=== PATIENT | male | born 1965 | race American Indian/Alaskan Native ===

== ENCOUNTER 2018-10-12 11:04 | Observation (INO) | payer BC ==
[2018-10-12] MEDS ORDERED: ASPIRIN 325 MG TAB PO ONE (12:00)
[2018-10-12 12:22] LABS: Absolute Monocytes 0.7 K/uL (0.1-1.3); Absolute Neutrophil 5.8 K/uL (1.8-8.0); Basophils % 0.5 % (0-1.3); Eosinophils % 1.1 % (0-4.4); Hematocrit 46.2 % (39.6-49.0); Lymphocytes % 23.4 % (15.3-44.8); MCH 30.4 pg (27.0-35.0); MCV 90.8 fL (80-100); Monocytes % 7.7 % (3.3-12.3); RBC Red Blood Cell Count 5.09 M/uL (4.33-5.43)
[2018-10-12 12:33] LABS: ALT/SGPT 36 U/L (12-78); AST/SGOT 20 U/L (15-37); Alkaline Phosphatase 108 U/L (45-117); BUN Blood Urea Nitrogen 19 mg/dL (7-18); Bicarbonate 26 mmol/L (21-32); Bilirubin Total 0.4 mg/dL (0.2-1.0); Glucose Level 172 mg/dL (74-106); Potassium 4.4 mmol/L (3.5-5.1); Protein, Total 7.7 g/dL (6.4-8.2); Sodium Level 139 mmol/L (136-145); Troponin I < 0.02 ng/mL (0.0-0.045)
--- NOTE | 2018-10-12 12:59 | RAD REPORT ---
EXAM DESCRIPTION: RAD - Chest Pa And Lat (2 Views) - 10/12/2018 12:50 pm CLINICAL HISTORY: Chest pain COMPARISON: None. TECHNIQUE: PA and lateral views of the chest were obtained. FINDINGS: The lungs are clear. Heart size is normal and central vasculature is within normal limit s. No pleural effusion or pneumothorax seen. No acute bony finding noted. No aortic abnormality. IMPRESSION: No acute cardiopulmonary process.
[2018-10-12 13:56] VITALS: BMI 38.5
[2018-10-12] MEDS: METOPROLOL TAR 25 MG TAB PO SCH ×2 (14:00→20:45)
[2018-10-12] MEDS: Enoxaparin 120 MG/0.8 ML SYR SQ SCH ×2 (14:00→20:46)
[2018-10-12 14:01] LABS: Urine Appearance CLEAR; Urine Bilirubin NEGATIVE (NEG); Urine Blood NEGATIVE (NEG); Urine Color YELLOW; Urine Glucose NEGATIVE (NEG); Urine Protein NEGATIVE (NEG); Urine Urobilinogen 0.2 mg/dL (0.2-1.0)
[2018-10-12 14:02] LABS: Urine Microscopic Reflex NO UMIC
[2018-10-12] MEDS ORDERED: PNEUMOCOCCAL VACCINE 0.5 ML IMVAC ONE (15:00)
[2018-10-12] MEDS ORDERED: INFLUENZA VACCINE (for 3y+) 0.5 ML DOSE IMVAC ONE (15:00)
[2018-10-12] MEDS ORDERED: MORPHINE 4 MG/ML SYR IV PRN (15:30)
[2018-10-12] MEDS ORDERED: GLUCAGON 1 MG/VIAL IM PRN (17:23)
[2018-10-12] MEDS ORDERED: D50W 25 GM/50 ML SYRINGE IV PRN (17:23)
[2018-10-12] MEDS: INSULIN -REGULAR HUMAN 50 UNIT/0.5 ML ML SQ SCH (20:44)
[2018-10-12] MEDS: ALPRAZOLAM 0.5 MG TABLET PO PRN ×2 (20:46→22:14)
[2018-10-13] MEDS: ALPRAZOLAM 0.5 MG TABLET PO PRN ×3 (05:22→21:54)
[2018-10-13] MEDS: INSULIN -REGULAR HUMAN 50 UNIT/0.5 ML ML SQ SCH ×4 (07:30→21:00)
[2018-10-13] MEDS ORDERED: REGADENOSON 0.4 MG/5 ML SYR IV ONE (07:54)
[2018-10-13] MEDS ORDERED: HOME MED 1 EA UNK (Aspirin [Aspirin Ec 325 Mg] 325 MG) PO SCH (09:00)
[2018-10-13] MEDS ORDERED: ASPIRIN EC 325 MG TABLET PO SCH (09:00)
[2018-10-13] MEDS ORDERED: AMLODIPINE BESYLATE PO SCH (09:00)
[2018-10-13] MEDS ORDERED: BENAZEPRIL PO SCH (09:00)
[2018-10-13] MEDS ORDERED: ATORVASTATIN 10 MG TAB PO SCH (09:00)
--- NOTE | 2018-10-13 11:13 | CON ---
Chief Complaint: Chest pain. History Of Present Illness: Mr. Campos has been having chest pain off and on for a week or perhaps se veral weeks. It is mostly in his left arm, some in the chest, not related to exertion, tends to occu r at rest mostly. The patient has a history of diabetes, obesity, hypertension, dyslipidemia, uses n o tobacco. He also has gout. Outpatient Medications: Metformin, fenofibrate, atorvastatin, vitamin B12, amlodipine, allopurinol, aspirin, multivitamin, and benazepril. Allergies: HE HAS NO ALLERGIES. Social History: Uses no tobacco. Rare alcohol. No illegal drugs. Physical Examination: General: 5 feet 7 inches, 246 pounds. Obese, alert, oriented, pleasant, not in distress. Lungs: Clear. Carotids no bruit. Heart: Exam within normal limits. Abdomen: Soft. Extremities: Normal distal pulses. Diagnostic Data: We do not seem to have an EKG done as of yet. He should have a baseline EKG at greg e point. If he has anything abnormal in his nuclear stress test or echo, we will discuss the finding s with him and look for another plan to make a diagnosis, possibly a cardiac cath. Thank you very much for your kind referral of Mr. Campos. I will follow him with you. JAVID Voice ID: [id number] Report ID: [id number]
[2018-10-13] MEDS: Enoxaparin 120 MG/0.8 ML SYR SQ SCH (11:33)
[2018-10-13] MEDS: ALLOPURINOL 300 MG TAB PO SCH (11:35)
[2018-10-13] MEDS: BENAZEPRIL 20 MG TAB PO SCH (11:35)
[2018-10-13] MEDS: AMLODIPINE 10 MG TAB PO SCH (11:36)
[2018-10-13] MEDS: METOPROLOL TAR 25 MG TAB PO SCH ×2 (11:36→20:43)
[2018-10-13] MEDS: FENOFIBRATE 160 MG TAB PO SCH (11:37)
--- NOTE | 2018-10-13 11:39 | RAD REPORT ---
EXAM DESCRIPTION: NM - Rest Stress Cardiac Imaging - 10/13/2018 11:20 am CLINICAL HISTORY: CP Chest pain. COMPARISON: No comparisons TECHNIQUE: The patient was administered approximately 10mCi of Tc 99m Sestamibi prior to resting SPE CT imaging of the heart. The patient was then administered approximately 30 mCi of Tc 99m Sestamibi f ollowing exercise or pharmacologic stress. Multiplanar SPECT images were reviewed. FINDINGS: Moderate sized area of mild stress-induced ischemia is seen along the lateral wall. No fix ed defect is seen to suggest hibernating myocardium or scarred myocardium. The end diastolic volume is 102 ml, the end systolic volume is 52 ml, and the ejection fraction is 49 %. IMPRESSION: Moderate sized area of mild stress-induced ischemia involving the lateral wall.
--- NOTE | 2018-10-13 13:27 | TREADPHA ---
DX: CHEST PAIN Date of Study: 10/13/18 Ht: 5 7 Wt: 246 lb 2 oz Consulting Physician: ANT MEDICATIONS: ZYLOPRIM, XANAX, NORVASC, ECOTRIN, LIPITOR, LOTENSIN, DEXTROSE, LOVENOX, TRICOR, NOVOLIN, LOPRESSOR. HISTORY: 53 YEAR OLD MALE WITH COMPLAINTS OF CHEST PAIN. HISTORY OF HYPERTENSION, NON INSULINE DEPENDENT DIABETES MELLITUS, HYPERLIDEMIA, NON SMOKER PHYSICIAL EXAMINATION: RESTING B.P.: 112/83 RESTING H.R.: 79 RESTING EKG: NORMAL PROTOCOL: LEXISCAN EXERCISE TIME: 3:30 B.P. AT PEAK STRESS: 94/59 IMPRESSION: LEXISCAN INJECTED PER PROTOCOL, FOLLOWED BY CARDIOLITE PER PROTOCOL, SEE [facility] MEDICINE REPORT. NO SUPRA VENTRICULAR TACHYCARDIA, NO VENTRICULAR TACHYCARDIA, NO CHEST PAIN, NO PREMATURE ATRIAL COMPLEXES, NO PREMATURE VENTRICULAR COMPLEXES. NON DIAGNOSTIC EKG WITH LEXISCAN STRESS.
--- NOTE | 2018-10-13 13:37 | ECHO ---
HEIGHT: 5 ft 7 in WEIGHT: 246 lb 2 oz DATE OF STUDY: 10/13/[address]: Josue Subramanian MD 2-DIMENSIONAL: YES M.MODE: YES DOPPLER: YES COLOR FLOW: YES TDS: PORTABLE: DEFINITY: BUBBLE STUDY: DIAGNOSIS: ATYPICAL CHEST PAIN. CARDIAC HISTORY: CATHERIZATION: NO SURGERY: NO PROSTHETIC VALVE: NO PACEMAKER: NO MEASUREMENTS (cm) DIASTOLIC (NORMALS) SYSTOLIC (NORMALS) IVSd 1.2 (0.6-1.2) LVIDs 2.8 (2.0-3.5) LVEF 52% LVIDd 3.8 (3.5-5.7) %FS 26% LVPWd 1.3 (0.6-1.2) Ao Diam 2.7 (2.0-3.7) 2 DIMENSIONAL ASSESSMENT: RIGHT ATRIUM: NORMAL LEFT ATRIUM: NORMAL RIGHT VENTRICLE: NORMAL LEFT VENTRICLE: NORMAL TRICUSPID VALVE: NORMAL MITRAL VALVE: NORMAL PULMONIC VALVE: NORMAL AORTIC VALVE: NORMAL PERICARDIAL EFFUSION: NONE AORTIC ROOT: NORMAL LEFT VENTRICULAR WALL MOTION: NORMAL DOPPLER/COLOR FLOW: NORMAL COMMENTS: NORMAL TWO DIMENSIONAL ECHOCARDIOGRAM WITH DOPPLER. TECHNOLOGIST: RANULFO MORGAN
[2018-10-13] MEDS ORDERED: PRASUGREL (EFFIENT) 10 MG TAB PO ONE (14:00)
[2018-10-13] MEDS ORDERED: HEPARIN 5000 UNIT/ML 1 ML VIAL ONE (14:07)
[2018-10-13] MEDS ORDERED: ATROPINE SULF 1 MG/10 ML SYR IV ONE (14:07)
[2018-10-13] MEDS ORDERED: NICARDIPINE HCL 25 MG/10 ML IV ONE (14:07)
[2018-10-13] MEDS ORDERED: NA CHLORIDE 0.9% 0 ML ONE (14:08)
[2018-10-13] MEDS ORDERED: NITROGLYCERIN/D5W 25 MG/250 ML BTL IV ONE (14:09)
[2018-10-13] MEDS ORDERED: HEPA 1000U/500MLS 2,000 UNIT/1,000 ML BAG IV ONE (14:09)
[2018-10-13] MEDS ORDERED: LIDOCAINE 1% MPF 5 ML VIAL ONE (14:28)
[2018-10-13] MEDS ORDERED: NA CHLORIDE 0.9% 500 ML ONE (15:01)
[2018-10-13] MEDS ORDERED: FENTANYL CITR 100 MCG/2 ML ONE (15:07)
[2018-10-13] MEDS ORDERED: MIDAZOLAM HCL 2 MG/2 ML INJ ONE ×2 (15:07→15:10)
--- NOTE | 2018-10-13 19:55 | HP ---
Date of Admission: 10/12/2018 Chief Complaint: Recurrent chest pain radiating to left arm. History Of Present Illness: A 53-year-old male was brought to the office because of recurrent chest pains for the last 3 days, located in the precordial area referred to left arm. The patient had an E KG done in the office. There was no evidence of acute injury. The patient is admitted for observati on. Because of his risk factors, he had workup. Past Medical History: Positive for type 2 diabetes, hyperlipidemia, hypertension, obesity. Family History: Noncontributory. Personal History: The patient has no known allergies. Home Medicines: Please refer to the chart. Review of Systems: No history of cough, hemoptysis, fever, chills, rigors. Physical Examination: General: Revealed a 53-year-old obese male, not in acute distress. Vital Signs: Normal. HEENT: Negative. Neck: Supple. JVD negative. Chest: Clear. Heart: Regular. Abdomen: Soft. Extremities: No edema. Laboratory Data: EKG in the office was normal. Troponin normal. Assessment: 1.Recurrent chest pain. 2.Type 2 diabetes. 3.Hyperlipidemia. 4.Hypertension. Plan: The patient is scheduled for chemical stress test today after which his symptoms will be inter preted. SAVANNAH/BRANDAN Voice ID: [id number]
[2018-10-14] MEDS ORDERED: ACETAMINOPHEN 500 MG TAB PO PRN (01:47)
--- NOTE | 2018-10-14 02:50 | OP ---
Surgeon: Josue Subramanian MD Procedures: Left heart catheterization attempt. Findings: We were unable to do a cardiac cath. We attempted the radial approach and found that the radial artery was either small or a simian pattern or blocked. We were unable to thread a wire beyon d the mid forearm. Procedure In Detail: The patient was brought to the cardiac laborer shaft sinking in a fasting state, sedated wit h Versed and fentanyl. Right radial approach was used. We prepared and draped in the usual sterile fashion, anesthetized the skin over the right radial artery. We were able to enter the artery a few times with a needle. It was very difficult to thread the wire. When it was threaded, it flowed free ly up until about 6 inches above the needle puncture site and was occluded. This is very suggestive of a simian pattern for the radial artery and I would recommend the radial approach to be abandoned f rom this point on in him. We can do a femoral artery approach, but because he has had Lovenox just v jillian recently, I have recommended that we not do the femoral approach now. It has been quite some renetta e since he had any chest pain and he has had none since getting loaded with prasugrel, so I have anabelle mmended he stay in the hospital until Tuesday. We will not give him any Lovenox on Tuesday morning. W e will do a left heart catheterization, possible stent then. DANY/BRANDAN Voice ID: [id number] Report ID: [id number]
[2018-10-14] MEDS: INSULIN -REGULAR HUMAN 50 UNIT/0.5 ML ML SQ SCH ×4 (07:30→21:00)
[2018-10-14] MEDS ORDERED: ASPIRIN EC 325 MG TABLET PO SCH (09:00)
[2018-10-14] MEDS: PRASUGREL (EFFIENT) 10 MG TAB PO SCH (09:53)
[2018-10-14] MEDS: AMLODIPINE 10 MG TAB PO SCH (09:54)
[2018-10-14] MEDS: BENAZEPRIL 20 MG TAB PO SCH (09:54)
[2018-10-14] MEDS: FENOFIBRATE 160 MG TAB PO SCH (09:55)
[2018-10-14] MEDS: METOPROLOL TAR 25 MG TAB PO SCH ×2 (09:55→21:20)
[2018-10-14] MEDS: ENOXAPARIN 40 MG/0.4 ML SQ SCH ×2 (09:56→10:54)
[2018-10-14] MEDS: ALLOPURINOL 300 MG TAB PO SCH (09:56)
[2018-10-14] MEDS: ATORVASTATIN 80 MG TAB PO SCH (09:56)
[2018-10-14] MEDS: ASPIRIN EC 81 MG TAB PO SCH (12:39)
--- NOTE | 2018-10-14 14:24 | PN ---
Subjective: Mr. Campos has a radial artery that is inaccessible to a catheter. We could not thread a needle, and most likely he has a simian pattern or 3 separate arteries that go to the hand instead o f just a radial and ulnar. In that case, doing a radial heart cath is impossible. We will do a femo ral artery heart cath on Tuesday. We did not do it yesterday because of his high level of anticoagula tion at that time. The patient is not having chest pain now. He feels fine, and we will do a cardia c cath, possible stent on Tuesday. He has agreed to stay in the hospital until we can make that happe n. His radial artery looks fine where we attempted to cannulate it. DANY/BRANDAN Voice ID: [id number] Report ID: [id number]
[2018-10-14] MEDS: NITROGLYCERIN 0.4 MG/TAB SL PRN ×2 (17:40→19:01)
[2018-10-14] MEDS: ALPRAZOLAM 0.5 MG TABLET PO PRN (21:20)
--- NOTE | 2018-10-15 01:23 | PN ---
The patient's cath could not be done yesterday due to access problem. The patient generally is doing well. No history of chest pain since the attempted catheterization. The patient is going to have catheterization done Tuesday. SAVANNAH/BRANDAN Voice ID: [id number] Report ID: [id number]
[2018-10-15] MEDS: INSULIN -REGULAR HUMAN 50 UNIT/0.5 ML ML SQ SCH ×4 (07:30→21:00)
[2018-10-15] MEDS: ASPIRIN EC 81 MG TAB PO SCH (08:28)
[2018-10-15] MEDS: ENOXAPARIN 40 MG/0.4 ML SQ SCH (08:28)
[2018-10-15] MEDS: METOPROLOL TAR 25 MG TAB PO SCH ×2 (08:28→21:20)
[2018-10-15] MEDS: PRASUGREL (EFFIENT) 10 MG TAB PO SCH (08:29)
[2018-10-15] MEDS: BENAZEPRIL 20 MG TAB PO SCH (08:29)
[2018-10-15] MEDS: ATORVASTATIN 80 MG TAB PO SCH (08:30)
[2018-10-15] MEDS: AMLODIPINE 10 MG TAB PO SCH (08:31)
[2018-10-15] MEDS: ALLOPURINOL 300 MG TAB PO SCH (08:31)
[2018-10-15] MEDS: FENOFIBRATE 160 MG TAB PO SCH (08:31)
[2018-10-15] MEDS: ALPRAZOLAM 0.5 MG TABLET PO PRN ×2 (15:10→21:19)
--- NOTE | 2018-10-15 18:03 | PN ---
The patient is doing okay today. He had an episode of chest pain, however, he did not have any furth er episodes. He is stable, and the plan is to have coronary angiography and possible angioplasty michelle orrow. SAVANNAH/BRANDAN Voice ID: [id number] Report ID: [id number]
[2018-10-15] MEDS: ACETYLCYST 20% 800 MG/4 ML VIAL PO SCH (21:19)
[2018-10-16] MEDS: BENAZEPRIL 20 MG TAB PO SCH (05:34)
[2018-10-16] MEDS: PRASUGREL (EFFIENT) 10 MG TAB PO SCH (05:34)
[2018-10-16] MEDS: METOPROLOL TAR 25 MG TAB PO SCH (05:35)
[2018-10-16] MEDS: ASPIRIN EC 81 MG TAB PO SCH (05:35)
[2018-10-16] MEDS: ACETYLCYST 20% 800 MG/4 ML VIAL PO SCH (05:35)
[2018-10-16] MEDS: AMLODIPINE 10 MG TAB PO SCH (05:35)
[2018-10-16] MEDS ORDERED: LIDOCAINE 1% MPF 30 ML VIAL ONE (07:18)
[2018-10-16] MEDS ORDERED: HEPA 1000U/500MLS 2,000 UNIT/1,000 ML BAG IV ONE (07:18)
[2018-10-16] MEDS: INSULIN -REGULAR HUMAN 50 UNIT/0.5 ML ML SQ SCH ×2 (07:30→11:30)
[2018-10-16] MEDS ORDERED: MIDAZOLAM HCL 2 MG/2 ML INJ ONE ×2 (07:42→08:09)
[2018-10-16] MEDS ORDERED: FENTANYL CITR 100 MCG/2 ML ONE (07:42)
[2018-10-16] MEDS ORDERED: NA CHLORIDE 0.9% 0 ML ONE (07:43)
[2018-10-16] MEDS ORDERED: ATROPINE SULF 1 MG/10 ML SYR IV ONE (07:43)
[2018-10-16] MEDS ORDERED: NA CHLORIDE 0.9% 500 ML ONE (07:57)
[2018-10-16 09:35] VITALS: O2SAT 95
[2018-10-16] MEDS: ATORVASTATIN 80 MG TAB PO SCH (10:08)
[2018-10-16] MEDS: FENOFIBRATE 160 MG TAB PO SCH (10:08)
[2018-10-16] MEDS: ALLOPURINOL 300 MG TAB PO SCH (10:08)
[2018-10-16] MEDS ORDERED: ACETAMINOPHEN 325 MG TABLET PO PRN (10:11)
[2018-10-16] MEDS ORDERED: NA CHLORIDE 0.9% 1,000 ML IV SCH (11:00)
[2018-10-16 12:21] VITALS: BP 123/70; TEMP 97
--- NOTE | 2018-10-16 19:49 | OP ---
Surgeon: Josue Subramanian MD Procedure: Left heart catheterization coronary, left ventricular angiography. Findings: The patient has normal coronary arteries, left dominant; normal ejection fraction; normal pressures, and normal cardiac cath. Final Impression: This is noncardiac chest pain and he had a false-positive Cardiolite stress test. Procedure In Detail: The patient was brought to the cardiac matlab developer in a fasting state, sedated wit h Versed and fentanyl. He was prepared and draped in the usual sterile fashion. Right femoral appro ach was used. Right radial artery was a failure several days ago. The tissues around the artery wer e anesthetized with 1% lidocaine. The artery was entered using an 18-gauge needle and then a short J -wire was placed into the artery, modified Seldinger technique, 4-Croatian sheath. We used a 4-Croatian JL4, 4-Croatian 3DRC, 4-Croatian angled pigtail to complete the study. At the end of that procedure, the pigtail catheter was withdrawn over a wire and an angiogram was done of the right femoral artery. A dequate anatomy was seen and the arteriotomy was closed with an Angio-Seal device. There were no com plications. DANY/MODL Voice ID: [id number] Report ID: [id number]
== END 2018-10-16 15:06 | disposition home or self-care (01) ==
LOC: 4TH 11:23
PROVIDERS: ADMIT Internal Medicine; ATTEND Internal Medicine
PROC: 4A023N7 Measurement of Cardiac Sampling and Pressure, Left Heart, Percutaneous Approach (ICD-10-PCS; principal; 2018-10-13)
PROC: B205YZZ Plain Radiography of Left Heart using Other Contrast (ICD-10-PCS; 2018-10-13)
PROC: 4A023N7 Measurement of Cardiac Sampling and Pressure, Left Heart, Percutaneous Approach (ICD-10-PCS; 2018-10-16)
PROC: B201YZZ Plain Radiography of Multiple Coronary Arteries using Other Contrast (ICD-10-PCS; 2018-10-16)
DX: R07.9 Chest pain, unspecified (principal); E11.9 Type 2 diabetes mellitus without complications; E78.5 Hyperlipidemia, unspecified; I10 Essential (primary) hypertension; E66.9 Obesity, unspecified; Z68.38 Body mass index [BMI] 38.0-38.9, adult
CPT/HCPCS: 36415; 71046; 78452; 80053; 81003; 82962; 84484; 85025; 87086; 87088; 90670; 93017; 93306; 93458; A9500; C1760; C1893; G0008; G0009; G0378; J0583; J1644; J1650; J2250; J2785; J3010; J7030; Q2035